=== PATIENT | male | born 1950 ===

== ENCOUNTER 2019-11-15 06:15 | Day surgery (SDC) | payer OTHER ==
[~2019-11-15 06:15] MED LIST: ADULT LOW DOSE81 M1 PO; BIDIL TABLET1 EACH PO; ENTRESTO 49 MG1 EACH PO; LASIX20 MG PO; LIPITOR40 M1 PO; SPIRONOLACTONE25 MG PO; TOPROL XL25 M1 PO; TRELSTAR3.75 M1 IM; ZETIA10 MG PO
== END 2019-11-15 10:09 | disposition home or self-care (01) ==
LOC: CIR.AMB 06:15 → ADM 11:00 → CIR.AMB 11:00
DX: N47.1 Phimosis (principal)